=== PATIENT | female | born 1980 | race Caucasian/White ===

== ENCOUNTER 2017-01-10 20:33 | Emergency (ER) | payer SELFPAY ==
[2017-01-10 20:52] VITALS: BP 128/74; BMI 44.4
[2017-01-10] MEDS ORDERED: ROCEPHIN VIAL 1 GM IM ONE (21:24)
[2017-01-10] MEDS ORDERED: TORADOL 60 MG VIAL IM ONE (21:25)
[2017-01-10] MEDS ORDERED: BACTROBAN OINT TOP ONE (21:26)
[2017-01-10] MEDS ORDERED: ROCEPHIN VIAL 1 GM ONE (21:39)
[2017-01-10] MEDS ORDERED: TORADOL 60 MG VIAL ONE (21:39)
[2017-01-10] MEDS ORDERED: BACITRACIN ZINC ONE (21:39)
--- NOTE | 2017-01-10 21:46 | DR.GENAD ---
HPI - PCP Primary Care Physician: NFD - Complaint/Symptoms Chief Complaint Doctors Comments: Patient states she has had a lesion on her left thigh for the past two weeks that has been getting worst. States it started off a small pustules like ant bites and got worst. states it was hurting when she walk and lay on her side and ever hurts when she tries to use the bathroom. State she has been trying to treat it at home but it has gotten worst. She states her last tetanus was May 2016 when she was bit by her neighbor's pit bull. States she does not have a local doctor. She has no other lesions like this on her body. Chief Complaint:: THINKS A SPIDER HAS BITTEN HER ON THE BACK OF THE LEFT LEG. HAS A HOLE IN IT NOW AND THE AREA LOOKS BRUISED AND RED. FEELING SICK TO STOMACH. PATIENT HAS HAD FEVER AND PAIN. Self Treatment fo Chief Complaint: TRIPLE ANTIBIOTIC OINT. TYLENOL FOR FEVER LAST NIGHT - Nurses notes reviewed Nurses Notes Review: Yes - Source History Provided: Patient - Mode of Arrival Mode of Arrival: Ambulatory - Timing Onset of Chief Complaint: 12/27/16 Came on: Gradually - Duration Duration: Constant How lon Duration: Weeks - Location Location: left thigh lesion and pain - Severity Severity: Moderate - Modifying Factors Worsens:: movment Improves:: nothing PMH - PMH Past Medical History: No Past Medical History: Migraines Past Surgical History: Yes Surgical History: Cholecystectomy, TALKBACK HOST Surgery - Family History History of Family Medical Conditions: Yes Family Medical History: Cancer, PR, Coronary Artery Disease, Heart Failure, Hypertension - Social History Does patient currently use any type of tobacco product: Yes Have you used tobacco products in the last 12 months: Yes Type of Tobacco Use: Cigarettes How many years tobacco product used: 20 Does any household member use tobacco: No Alcohol Use: None Do you use any recreational Drugs:: No Lives With: Significant Other Lives Where: Home - infectious screening In the last 2 months have you had wt loss of >10#?: NO Have you had fever, night sweats or hemotysis?: No Have you traveled outside the country in the last 6 months?: No Isolation: Standard ROS - Review of Systems Constitutional: No Symptoms Reported. negative: See HPI, Chills, Diaphoresis, Fever, Malaise, Weakness, Irritable, Fatigue, Loss of Appetite, Other Eyes: No Symptoms Reported ENTM: No Symptoms Reported Respiratoy: No Symptoms Reported. negative: See HPI, Productive Cough, Non- Productive Cough, Moist Cough, Dry Cough, Hacking Cough, Barking Cough, Brassy Cough, Orthopnea, Short of Breath, Stridor, Wheezing, Hemoptysis, Other Cardiovascular: No Symptoms Reported Gastrointestinal/Abdominal: No Symptoms Reported Genitourinary: No Symptoms Reported Neurological: No Symptoms Reported, Problems Walking (left leg pain when she walks) Musculoskeletal: No Symptoms Reported, Left, Leg Integumentary: Lesions. negative: No Symptoms Reported, See HPI, Change in Color, Change in Hair/Nails, Dryness, Lumps, Rash, Itching, Wound, Bruises, Juandice, Other Hematologic/Lymphatic: No Symptoms Reported. negative: See HPI, Anemia, Blood Clots, Easy Bleeding, Easy Bruising, Swollen Glands, Lymphadenopathy, Other Endocrine: No Symptoms Reported Psychiatric: No Symptoms Reported PE - Vital Signs Vitals: Temperature 98.4 F Pulse Rate 88 Respiratory Rate 20 Blood Pressure 128/74 O2 Sat by Pulse Oximetry 96 - General Limitations: No Limitations General Appearance: Alert, In Distress (moderate) - Head Head Exam: Normal Inspection, Atraumatic, Normocephalic - Eyes Eye exam: Normal Appearance, PERRL, EOMI. negative: Scleral Icterus, Conjunctival Injection, Nystagmus, Miosis, Mydrasis, Periorbital Swelling, Periorbital Tenderness, Other - ENT ENT Exam: Normal Exam, Normal Oropharynx, Normal External Ear Exam, Mucous Membranes Moist, TM's Normal Bilaterally External Ear Exam: Normal External Inspection TM/Canal Exam: Bilateral Normal Nose Exam: Normal Nose Exam Mouth Exam: Normal Inspection Throat Exam: Normal Inspection - Neck Neck Exam: Normal Inspection, Full ROM, Trachea Midline. negative: Tenderness, Meningismus, Lymphadenopathy, Thyromegaly, Other - Chest Chest Inspection: Normal Inspection, Symmetric Chest Wall Rise - Respiratory Respiratory Exam: Normal Lung Sounds Bilat. negative: Accessory Muscle Use, Chest Wall Tenderness, Prolonged Expiratory Phase, Respiratory Distress, Stridor , Other Respiratory Exam: Bilateral Clear to Auscultation - Cardiovascular Cardiovascular Exam: Regular Rate, Normal Rhythm, Normal Heart Sounds - Abdominal Exam Abdominal Exam: Normal Inspection, Normal Bowel Sounds, Soft. negative: Distention, Tenderness, Guarding, Rebound, Rigidity, Dimnished Bowel Sounds, Hyperactive Bowel Sounds, Hypoactive Bowel Sounds, Organomegaly, Trauma, Incision, Ascites, Mass, Bruit, Pulsatile Mass, Hernia, Other Abdominal Tenderness: negative: RUQ, RLQ, LUQ, LLQ, Epigastrium, Suprapubic, Diffuse, Mild, Moderate, Severe, Other - Extremities Extremities Exam: Normal Inspection, Full ROM, Tenderness (left thigh with 4 cm erythmatous macular lesion with crusting; small putular lesion next to it.), Normal Capillary Refill - Back Back Exam: Normal Inspection, Full ROM. negative: Tenderness, (R) CVA Tenderness, (L) CVA Tenderness, Muscle Spasm, Paraspinal Tenderness, Vertebral Tenderness, Rashes, (R) Sciatic Notch Tenderness, (L) Sciatic Notch Tendern, (R ) Straight Leg Raise, (L) Straight Leg Raise, Other - Neurologic Neurological Exam: Alert, Oriented X3, CN II-XII Intact, Reflexes Normal. negative: Normal Gait (gait not tested) - Psychiatric Psychiatric Exam: Normal Affect, Normal Mood. negative: Depressed, Agitated, Anxious, Flat Affect, Manic, Homicidal Ideation, Suicidal Ideation, Other - Skin Skin Exam: Warm, Dry, Intact, Normal Color, Erythema (left thigh with lesion 3- 4 cm wound) - Diagnosis Discharge Problem: Cellulitis of left thigh, Impetigo - Discharge Plan Disposition: HOME, SELF-CARE Condition: Stable Prescriptions: Acetaminophen/Codeine Tab [TYLENOL w/CODEINE #3 (300 MG/30 MG) *] 1 tab PO Q4- 6H PRN #24 tab PRN Reason: Pain Cephalexin [KEFLEX CAP 500 MG *] 500 mg PO TID #30 cap Sulfamethoxazole-Trimethoprim [BACTRIM DS TAB 800/160 MG *] 1 tab PO BID #20 tab - Follow ups/Referrals Follow ups/Referrals: NFD,None [Primary Care Provider] - 3 days JUAN LUIS CASIANO [STAFF PHYSICIAN] - 3 days - Instructions Instructions: Cellulitis, Adult, [id number], Impetigo, Adult
[2017-01-10] MEDS ORDERED: LEVAQUIN TAB 500 MG ONE (21:54)
[2017-01-10] MEDS ORDERED: LEVAQUIN TAB 500 MG PO SCH (22:00)
== END 2017-01-10 22:05 | disposition home or self-care (01) ==
LOC: ER 20:33
DX: L03.116 Cellulitis of left lower limb (principal); L01.00 Impetigo, unspecified
CPT/HCPCS: 96372; 99282; 99283; J0696; J1885